=== PATIENT | male | born 1970 | race Caucasian/White ===

== ENCOUNTER 2023-11-06 13:29 | Outpatient (CLI) | payer OTHER, SELFPAY ==
--- OUTSIDE RECORDS SUMMARY | 2023-11-06 13:33 | XMS_ITS | Referral Summary ---
Author Organization [place] Address [address] [facility] [place] [address] Care Team Providers Care Transcript Clerk Name Role Phone [facility], [facility] Primary Care Provider + Allergies Active Allergy Reactions Criticality Noted Date Comments Hydromorphone 10/02/2017 No Known Drug Allergy 05/12/2011 Medications Medication Sig Dispensed Refills Start Date End Date Status azithromycin (ZITHROMAX Z-LUZ) 250 MG tabletIndications:A cute bronchitis Take 2 tablets on day 1, then 1 tablet daily for 4 days. May fill antibiotics 05/27/12. 6 tablet 0 05/24/2012 Active Active Problems Problem Noted Date Diagnosed Date Mixed hyperlipidemia 05/12/2011 Resolved Problems Problem Noted Date Diagnosed Date Resolved Date NO ACTIVE PROBLEMS 05/12/2011 2 Immunizations Name Administration Dates Next Due TDAP Vaccine (Adacel) 05/12/2011 Social History Tobacco Use Types Packs/Day Years Used Date Smoking Tobacco: Some Days Smokeless Tobacco: Never Tobacco Cessation:Ready to Q uit: No; Counseling Given: Yes Alcohol Use Standard Drinks/Week Comments Not Asked 0 (1 standard drink = 0.6 oz pur e alcohol) Adolescent Education Answer Date Record ed Getting School Help Needed Not on file 01/27 Sex and Gender Information Value Date Recorded Sex Assigned at Not on file Gender Identity Not on file Sexual Orientation Not on file Last Filed Vital Signs Vital Sign Reading Time Taken Comments Blood Pressure 147/95 10/02/2017 8:30 AM CDT Pulse 69 10/02/2017 7:20 AM CDT Temperature 36.3 ??C (97.3 ??F) 10/02/2017 7:20 AM CD T Respiratory Rate 18 10/02/2017 7:20 AM CDT Oxygen Saturation 97% 10/02/2017 8:45 AM CDT Inhaled Oxygen Concentration - - Weight 99.1 kg (218 lb 7 oz) 05/24/2012 2:09 PM LABELER Height 167.6 cm (5' 6) 05/07/2012 2:20 PM LABELER Body Mass Index 35.26 05/07/2012 2:20 PM LABELER Plan of Treatment Not on file Care Teams Transcript Clerk Relationship Specialty Start Date End Date Clinic, [place] [address] [place] [address] PCP - General 10/02/17
--- OUTSIDE RECORDS SUMMARY | 2023-11-06 13:33 | XMS_ITS | Clinical Summary ---
Author Organization [place] Address [address] [place] [address] Care Team Providers Care Foot Piece Assembler Name Role Phone [facility], [facility] Primary Care Provider + Allergies Active Allergy [...] Dates Next Due TDAP Vaccine (Adacel) 05/12/2011 Family History Medical History Relation Comments C.A.D. Father Cerebrovascular Disease Father Diabetes Father Heart Disease Father Hypertension Father Lipids Father Cancer - colorectal Maternal Grandmother Heart Disease Maternal Grandmother Gastrointestinal Disease Mother colon p olyps Hypertension Mother Lipids Mother Gastrointestinal Disease Sister 2 Relation Status Comments Father (Age 70) congestive hea rt failure Maternal Grandmother Mother Alive Sister 1 Alive Sister 2 Social History Tobacco Use Types Packs/Day Years [...] (218 lb 7 oz) 05/24/2012 2:09 PM GENERAL ASSISTANT Height 167.6 cm (5' 6) 05/07/2012 2:20 PM GENERAL ASSISTANT Body Mass Index 35.26 05/07/2012 2:20 PM GENERAL ASSISTANT Plan of Treatment Not on file Care Teams Foot Piece Assembler Relationship Specialty Start Date End Date Clinic, [place] [address] [place] [address] PCP - General 10/02/17
--- OUTSIDE RECORDS SUMMARY | 2023-11-06 13:33 | XMS_ITS | Encounter Summary ---
Author Organization [place] Address [address] [facility] [address] Care Team Providers Care Motor Equipment Commanding Officer Name Role Phone Gabino Reddy MD Primary Care Provider +1- [phone] Fer Robbins MD Unavailable +[phone] [facility] Primary Care Provider + Encounter Details Date Type Department Care Team (Late st Contact Info) Description 05/09/2012 [facility] Inpatient Dept [address] [place] [phone] Frw, Inpatient Provider Social History Tobacco Use Types Packs/Day Years Used Date Smoking Tobacco: Some Days Smokeless Tobacco: Never Alcohol Use Standard Drinks/Week Comments Not Asked 0 (1 standard drink = 0.6 oz pur e alcohol) Sex and Gender Information Value Date Recorded Sex Assigned at Not on file Gender Identity Not on file Sexual Orientation Not on file documented as of this encounter Plan of Treatment Not on file documented as of this encounter Visit Diagnoses Not on filedocumented in this encounter Care Teams Motor Equipment Commanding Officer Relationship Specialty Start Date End Date Gabino Reddy MD [facility] [address] [place] [address] PCP - General Family Practice 05/12/11 10/01/17 Fer Robbins MD [facility] [address] [place] [address] PCP - Orthopaedics Orthopedics 04/30/12 10/01/17 [facility] [address] [place] [address] PCP - General 10/02/17 documented as of this encounter
--- OUTSIDE RECORDS SUMMARY | 2023-11-06 13:33 | XMS_ITS | Encounter Summary ---
Author Organization [place] Address [address] [place] [address]. [place] [address] Care Team Providers Care Claim Rep Name Role Phone Gabino Reddy MD Primary Care Provider [phone]- [phone] Encounter Details Date Type Department Care Team (Late st Contact Info) Description 06/23/2011 2:55 PM DONOR SERVICES SPECIALIST [facility] in [address] [address] Danay Sexton MD XXX [place] [address] Social History Tobacco Use Types Packs/Day Years [...] on file documented as of this encounter Procedures Procedure Name Priority Date/Time Associated Diagnosis Comments SURGICAL PATHOLOGY EXAM Routine 06/23/2011 12:00 AM DONOR SERVICES SPECIALIST documented in this encounter Results * Surgical pathology exam (06/23/2011 12:00 AM DONOR SERVICES SPECIALIST) Copath Report Patient Name: TE VIEYRA MR#: [id number] Specimen #: [id number] Collected: 06/23/2011 Received: 06/23/2011 Reported: 06/26/2011 13:59 Ordering Phy(s): DANAY SEXTON SPECIMEN(S): A: Rectosigmoid polyp B: Colon, descending polyp C: Sigmoid colon polyp FINAL DIAGNOSIS: A. ??Colon, sigmoid, rectal-sigmoid polyp, biopsies: ? - ??Fragments of hyperplastic polyp. B. ??Colon, descending, biopsies: ? - ??Hyperplastic polyp. C. ??Colon, sigmoid, biopsy: ? - ??Hyperplastic polyp. Electronically signed out by: Nik Winslow M.D. CLINICAL HISTORY: Specimen A, colon, sigmoid, rectosigmoid polyp. ??Specimen B, colon, descending. ??Specimen C, colon, sigmoid. GROSS: The containers are labeled with the patient's name, medical record number, and the date of . A. ??Specimen A is designated as colon, sigmoid, rectosigmoid polyp. Four tissues, 1-2 mm. B. ??Specimen B is designated as colon, descending. ??Four tissues, less than 1 mm - 1 mm. C. ??Specimen C is designated as colon, sigmoid. ??2 mm tissue. (Nik Winslow MD/ ??06/23/2011) MICROSCOPIC: A-C. ??Microscopic examination is performed. Nik Winslow MD/elaine 06/26/2011 TESTING LAB LOCATION: [address] [address] COLLECTION SITE: Client: [facility] Location: END (W) COPATH 06/23/2011 06/23/2011 11: 47 AM DONOR SERVICES SPECIALIST Danay Sexton MD LAB - [facility] COPATH documented in this encounter Visit Diagnoses Not on filedocumented in this encounter Care Teams Claim Rep Relationship Specialty Start Date End Date Gabino Reddy MD [address] [address] PCP - General Family Practice 05/12/11 10/01/17 documented as of this encounter
== END 2023-11-06 13:30 | disposition home or self-care (01) ==
PROVIDERS: PCP Internal Medicine; Visit Provider Internal Medicine
DX: Z00.00 Encounter for general adult medical examination without abnormal findings (principal); I10 Essential (primary) hypertension; E78.5 Hyperlipidemia, unspecified; Z12.5 Encounter for screening for malignant neoplasm of prostate
CPT/HCPCS: 80053; 80061; G0103

== ENCOUNTER 2024-03-19 13:20 | Outpatient (CLI) | payer MEDICAID, OTHER, SELFPAY ==
--- OUTSIDE RECORDS SUMMARY | 2024-03-19 13:23 | XMS_ITS | Clinical Summary ---
Author Organization [employer] [facility] [place] [address] Care Team Providers Care Vehicle Technician Name Role Phone Cynthia Chavez MD Primary Care Provider Unava ilable Allergies Active Allergy Reactions Criticality Noted Date Comments Hydromorphone *Unknown 10/02/2017 Medications Medication Sig Dispensed Refills Start Date End Date Status aspirin (ECOTRIN) 81 mg enteric coated tabletIndications: S/P total left hip arthroplasty Take 1 Tablet (81 mg) by mouth two times daily with meals. Begin evening of surgery 84 Tablet 02/04/2024 Active celecoxib (CeleBREX) 100 mg capsuleIndications :S/P total left hip arthroplasty Take 1 Capsule (100 mg) by mouth two times daily with meals. 60 Capsule 02/04/2024 Active pantoprazole (PROTONIX) 40 mg delayed-release tabletIndications: S/P total left hip arthroplasty Take 1 Tablet (40 mg) by mouth before breakfast. 30 Tablet 02/04/2024 Active ondansetron (Zofran) 4 mg tabletIndications: S/P total left hip arthroplasty Take 1 Tablet (4 mg) by mouth every 8 hours if needed for Nausea/Vomiting. 20 Tablet 02/04/2024 Active docusate (COLACE) 100 mg capsuleIndications :S/P total left hip arthroplasty Take 1 Capsule (100 mg) by mouth 2 times daily if needed for Constipation. 20 Capsule 02/04/2024 Active oxyCODONE (ROXICODONE) 5 mg immediate release tabletIndications: S/P total left hip arthroplasty Take 1 Tablet (5 mg) by mouth every 4 hours if needed for Pain. 20 Tablet 02/04/2024 Active traMADoL (ULTRAM) 50 mg tabletIndications: S/P total left hip arthroplasty Take 1 Tablet (50 mg) by mouth every 6 hours if needed for Pain. 30 Tablet 02/04/2024 Active acetaminophen (TYLENOL EXTRA STRGTH) 500 mg tabletIndications: S/P total left hip arthroplasty Take 2 Tablets (1,000 mg) by mouth every 6 hours. Max acetaminophen dose: 4000mg in 24 hrs. 200 Tablet 02/04/2024 Active Active Problems Problem Noted Date Diagnosed Date Primary localized osteoarthritis of left hip Primary osteoarthritis of left hip 02/04/2024 Primary hypertension 01/22/2024 Mixed hyperlipidemia 05/12/2011 Encounters Date Type Department Care Team Description 03/18/2024 11:25 AM STEELWORKER Ancillary Procedure [facility] Specialty [facility] [address] [facility] [address] [place] [address] Arrived 03/18/2024 11:15 AM STEELWORKER Office Visit [facility] Specialty [facility] [address] [facility] [address] [place] [address] Javier Pascal, Arrived 03/18/2024 Travel 02/19/2024 11:15 AM CDT Ancillary Procedure [facility] Specialty [facility] [address] [facility] [address] [place] [address] 02/19/2024 11:00 AM CDT Office Visit [facility] [address] [place] [address] [address] [place] [address] Javier Pascal DO 02/19/2024 Travel 02/04/2024 6:22 AM CDT - 02/04/2024 11:59 PM CDT Hospital Encounter Javier Pascal DO 02/04/2024 Orders Only [facility] Specialty [facility] [address] [facility] [address] [place] [address] Javier Pascal, <No scans attached> 02/04/2024 Telephone [facility] Specialty [facility] [address] [place] [address] [address] [place] [address] Javier Pascal DO Referral (PT) 02/04/2024 Surgery [facility] [facility] [address] [facility] [address] [place] [address] Javier Pascal DO LEFT TOTAL HIP ARTHROPLASTY ANTERIOR APPROACH 02/04/2024 Orders Only [facility] Specialty Clinic [address] [facility] [address] [place] [address] Marva Lynne PA <No scans attached> 01/22/2024 1:45 PM CDT Office Visit [facility] Specialty [facility] [address] [facility] [address] [place] [address] Javier Pascal DO Follow Up (Post-traumatic osteoarthritis of left hip/) 01/22/2024 Orders Only [facility] Specialty Clinic [address] [facility] [address] [place] [address] Javier Pascal DO <No scans attached> 01/22/2024 Travel 01/10/2024 10:45 AM CDT Ancillary Procedure [facility] [address] [address] 01/10/2024 10:40 AM CDT Ancillary Procedure [facility] [address] [address] 01/10/2024 10:15 AM CDT Office Visit [facility] [address] [address] Javier Pascal DO Hip Pain/problem (Left hip pain) 01/10/2024 Travel from Last 3 Months Social History Tobacco Use Types Packs/Day Years Used Date Smoking Tobacco: Some Days Smokeless Tobacco: Current Tobacco Cessation:Ready to Q uit: Not Asked; Counseling Given: Not Answered Comments:Vapes and uses nicotine patches some days, could not quantify use. Sex and Gender Information Value Date Recorded Sex Assigned at Not on file Gender Identity Not on file Sexual Orientation Not on file Travel History Travel Start Travel End [place] 02/18/2024 02/18/2024 Obstetrics History Plan of Treatment Health Maintenance Due Date Last Done Comments Tdap 01/16/1980 Depression screening for age 12+ 1981 HIV for age 15-65 01/16/1984 BMI (ht and wt on same day) for age 18+ 1987 Hepatitis C screening for ag e 18-79 1987 Tetanus booster 1989 Colonoscopy through age 75 2014 Lipids for age 45-75 2014 Zoster (shingles) series for age 50+ (1 of 2) 2019 COVID-19 vaccine series ( - 2023- season) 2023 Influenza for age 50-64 12/23/2023 Pneumococcal series for age 6-64 Aged Out No longer eligible based on patient's age to complete this topic Procedures Procedure Name Priority Date/Time Associated Diagnosis Comments XR PELVIS 1 VIEW Routine 02/19/2024 11:1 8 AM CDT S/P left anterior total hip arthroplasty, DOS: 02/04/24 by Javier Pascal DO XR HIP 2 OR 3 VIEWS W PELVIS LEFT Routine 01/10/2024 10:50 AM CDT Left hip pain XR LEG LENGTH Routine 01/10/2024 10:49 AM CDT Left hip pain SURGICAL PROCEDURE (TYPE PROCEDURE DESCRIPTION BELOW) Elective Post-traumatic osteoarthritis of left hip from Last 3 Months Results * XR PELVIS 1 VIEW (02/19/2024 11:18 AM CDT) Anatomical Region Laterality Modality Pelvis Digital Radiogra phy 02/20/2024 9:55 AM CDT Narrative 02/20/2024 9:55 AM CDT For Patients: As a result of the Cures Act, medical imaging exams and procedure reports are released immediately into your electronic medical record. You may view this report before your referring provider. If you have questions, please contact your health care provider. Indication: Postoperative follow-up. Technique: One-view pelvis Comparison: 01/10/2024. Findings: Left hip arthroplasty in anatomic alignment. No periprosthetic lucency or fracture. Moderate arthrosis at the contralateral right hip. Included bony pelvis intact. Impression: Left hip arthroplasty without radiographic evidence of complication Dictated by Eric Cedeño MD @ 02/20/2024 9:55:18 AM (Electronically Signed) Procedure Note Eric Cedeño MD - 02/20/2024 For Patients: As a result of the s Act, medical imagingexams and procedure reports are released immediately into your electronicmedical record. You may view this report before your referring provider.If you have questions, please contact your health care provider. Indication: Postoperative follow-up. Technique: One-view pelvis Comparison: 01/10/2024. Findings: Left hip arthroplasty in anatomic alignment. No periprosthetic lucency orfracture. Moderate arthrosis at the contralateral right hip. Included bonypelvis intact. Impression: Left hip arthroplasty without radiographic evidence of complication Dictated by Eric Cedeño MD @ 02/20/2024 9:55:18 AM (Electronically Signed) [facility] GENERAL IMAG[facility] * XR HIP 2 OR 3 VIEWS W PELVIS LEFT (01/10/2024 10:50 AM CDT) Anatomical Region Laterality Modality HIPS, HIPL, Pelvis Digital Radio graphy 01/11/2024 7:47 AM CDT Narrative 01/11/2024 7:47 AM CDT For Patients: As a result of the s , medical imaging exams and procedure reports are released immediately into your electronic medical record. You may view this report before your referring provider. If you have questions, please contact your health care provider. INDICATION: Left hip pain TECHNIQUE: Three views left hip FINDINGS/IMPRESSION: Advanced degenerative change of the left hip with joint space narrowing osteophytic changes moderate degenerative change of the right hip. No fractures. Dictated by Nay Roe MD @ 01/11/2024 7:47:31 AM (Electronically Signed) Procedure Note Nay Roe MD - 01/11/2024 For Patients: As a result of the s , medical imagingexams and procedure reports are released immediately into your electronicmedical record. You may view this report before your referring provider.If you have questions, please contact your health care provider. INDICATION: Left hip pain TECHNIQUE: Three views left hip FINDINGS/IMPRESSION: Advanced degenerative change of the left hip with joint space narrowingosteophytic changes moderate degenerative change of the right hip. Nofractures. Dictated by Nay Roe MD @ 01/11/2024 7:47:31 AM (Electronically Signed) Javier Pascal DO GENERAL IMAGING * XR LEG LENGTH (01/10/2024 10:49 AM CDT) Anatomical Region Laterality Modality LEGS, FEMURS Digital Radiogra phy 01/11/2024 7:46 AM CDT Narrative 01/11/2024 7:46 AM CDT For Patients: As a result of the Cures Act, medical imaging exams and procedure reports are released immediately into your electronic medical record. You may view this report before your referring provider. If you have questions, please contact your health care provider. INDICATION: Left hip pain TECHNIQUE: TECHNIQUE:Standing views of both lower extremities. FINDINGS/IMPRESSION: Advanced degenerative Change left hip. Moderate degenerative change right hip. Limb length measured from the superior femoral head to the center of the tibial plafond. Right leg length: 84.3 Mechanical axis passes through the medial compartment Left leg length: 85.1 Mechanical axis passes through the intercondylar notch Dictated by Nay Roe MD @ 01/11/2024 7:46:49 AM (Electronically Signed) Procedure Note Nay Roe MD - 01/11/2024 For Patients: As a result of the Cures Act, medical imagingexams and procedure reports are released immediately into your electronicmedical record. You may view this report before your referring provider.If you have questions, please contact your health care provider. INDICATION: Left hip pain TECHNIQUE: TECHNIQUE:Standing views of both lower extremities. FINDINGS/IMPRESSION: Advanced degenerative Change left hip. Moderate degenerative change right hip. Limb length measured from the superior femoral head to the center of thetibial plafond. Right leg length: 84.3 Mechanical axis passes through the medial compartment Left leg length: 85.1 Mechanical axis passes through the intercondylar notch Dictated by Nay Roe MD @ 01/11/2024 7:46:49 AM (Electronically Signed) Javier Pascal DO GENERAL IMAGING from Last 3 Months Care Teams Vehicle Technician Relationship Specialty Start Date End Date Cynthia Chavez MD PCP - General 04/19/05
--- OUTSIDE RECORDS SUMMARY | 2024-03-19 13:23 | XMS_ITS | Encounter Summary ---
Author Organization [place] Address [address] [place] [address] Care Team Providers Care Television Script Writer Name Role Phone Gabino Reddy MD Primary Care Provider +1- [phone] Encounter Details Date Type Department Care Team (Late st Contact Info) Description 06/23/2011 2:[address] [facility] in [address] [phone] Danay Sexton MD XXX [place] [address] [address] Social History Tobacco Use Types Packs/Day Years Used Date Smoking Tobacco: Some Days Smokeless Tobacco: Never Alcohol Use Standard Drinks/Week Comments Not Asked 0 (1 standard drink = 0.6 oz pur e alcohol) Sex and Gender Information Value Date Recorded Sex Assigned at Not on file Legal Sex Male 2:58 AM ADMISSIONS ASSISTANT Gender Identity Not on file Sexual Orientation Not on file documented as of this encounter Plan of Treatment Not on file documented as of this encounter Procedures Procedure Name Priority Date/Time Associated Diagnosis Comments SURGICAL PATHOLOGY EXAM Routine 06/23/2011 12:00 AM ADMISSIONS ASSISTANT documented in this encounter Results * Surgical pathology exam (06/23/2011 12:00 AM ADMISSIONS ASSISTANT) Copath Report Patient Name: TE VIEYRA MR#: [id number] Specimen #: [id number] Collected: 06/23/2011 Received: 06/23/2011 Reported: 06/26/2011 13:59 Ordering Phy(s): DANAY SEXTON SPECIMEN(S): A: Rectosigmoid polyp B: Colon, descending polyp C: Sigmoid colon polyp FINAL DIAGNOSIS: A. Colon, sigmoid, rectal-sigmoid polyp, biopsies: - Fragments of hyperplastic polyp. B. Colon, descending, biopsies: - Hyperplastic polyp. C. Colon, sigmoid, biopsy: - Hyperplastic polyp. Electronically signed out by: Nik Winslow M.D. CLINICAL HISTORY: Specimen A, colon, sigmoid, rectosigmoid polyp. Specimen B, colon, descending. Specimen C, colon, sigmoid. GROSS: The containers are labeled with the patient's name, medical record number, and the date of . A. Specimen A is designated as colon, sigmoid, rectosigmoid polyp. Four tissues, 1-2 mm. B. Specimen B is designated as colon, descending. Four tissues, less than 1 mm - 1 mm. C. Specimen C is designated as colon, sigmoid. 2 mm tissue. (Nik Winslow MD/ 06/23/2011) MICROSCOPIC: A-C. Microscopic examination is performed. Nik Winslow MD/elaine 06/26/2011 TESTING LAB LOCATION: [address] [place] [address] COLLECTION SITE: Client: [facility] Location: END (W) COPATH 06/23/2011 06/23/2011 11: 47 AM ADMISSIONS ASSISTANT Danay Sexton MD LAB - [facility] COLON [facility] Re sult [facility] Organization Address City/State/ZIP Co de Phone Number COPATH documented in this encounter Visit Diagnoses Not on filedocumented in this encounter Care Teams Television Script Writer Relationship Specialty Start Date End Date Gabino Reddy MD [address] [place] [address] PCP - General Family Practice 05/12/11 10/01/17 documented as of this encounter
--- OUTSIDE RECORDS SUMMARY | 2024-03-19 13:23 | XMS_ITS | Clinical Summary ---
Author Organization [place] Address [address] [facility] [place] [address] Care Team Providers Care Biology Manager Name Role Phone [facility] Primary Care Provider + Allergies Active Allergy Reactions Criticality Noted Date Comments Hydromorphone 10/02/2017 No Known Drug Allergy 05/12/2011 Medications azithromycin (ZITHROMAX Z-LUZ) 250 MG tabletIndicatio ns:Acute bronchitis Take 2 tablets on day 1, then 1 tablet daily for 4 days. May fill antibiotics 05/27/12. 6 tablet 0 3 Active Active Problems Problem Noted Date Diagnosed [...] on file Legal Sex Male 2:58 AM ASSEMBLY INSPECTOR Gender Identity Not on file Sexual Orientation Not on file Last Filed Vital Signs Vital Sign Reading Time Taken Comments Blood Pressure 147/95 10/02/2017 8:30 AM CDT Pulse 69 10/02/2017 7:20 AM CDT Temperature 36.3 C (97.3 F) 10/02/2017 7:20 AM CDT Respiratory Rate 18 10/02/2017 7:20 AM CDT Oxygen Saturation 97% 10/02/2017 8:45 AM CDT Inhaled Oxygen Concentration - - Weight 99.1 kg (218 lb 7 oz) 05/24/2012 2:09 PM ASSEMBLY INSPECTOR Height 167.6 cm (5' 6) 05/07/2012 2:20 PM ASSEMBLY INSPECTOR Body Mass Index 35.26 05/07/2012 2:20 PM ASSEMBLY INSPECTOR Plan of Treatment Not on file Insurance [facility] Care Teams Biology Manager Relationship Specialty Start Date End Date [facility], [place] [address] [place] [address] PCP - General 10/02/17
--- OUTSIDE RECORDS SUMMARY | 2024-03-19 13:23 | XMS_ITS | Referral Summary ---
Author Organization [place] Address [address] [facility] [address] Care Team Providers Care Car Inspector Name Role Phone [facility] Primary Care Provider + Allergies Active [...] on file Legal Sex Male 2:58 AM LEGAL EDITOR Gender Identity Not on file Sexual Orientation [...] (218 lb 7 oz) 05/24/2012 2:09 PM LEGAL EDITOR Height 167.6 cm (5' 6) 05/07/2012 2:20 PM LEGAL EDITOR Body Mass Index 35.26 05/07/2012 2:20 PM LEGAL EDITOR Plan of Treatment Not on file Insurance [facility] Care Teams Car Inspector Relationship Specialty Start Date End Date [facility], [place] [address] [place] [address] PCP - General 10/02/17
--- OUTSIDE RECORDS SUMMARY | 2024-03-19 13:23 | XMS_ITS | Encounter Summary ---
Author Organization [place] Address [address] [place] [address]. [place] [address] Care Team Providers Care Marine Services Technician Name Role Phone Gabino Reddy MD Primary Care Provider [phone] Fer Robbins MD Unavailable +[phone] [facility] Primary Care Provider + Encounter Details Date Type Department Care Team (Late st Contact Info) Description 05/09/2012 [facility] [place] Inpatient Dept [address] [place] [address] Frw, Inpatient Provider Social History Tobacco Use Types Packs/Day Years Used Date Smoking Tobacco: Some Days Smokeless Tobacco: Never Alcohol Use Standard Drinks/Week Comments Not Asked 0 (1 standard drink = 0.6 oz pur e alcohol) Sex and Gender Information Value Date Recorded Sex Assigned at Not on file 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 Gender Identity Not on file Sexual Orientation Not on file documented as of this encounter Plan of Treatment Not on file documented as of this encounter Visit Diagnoses Not on filedocumented in this encounter Care Teams Marine Services Technician Relationship Specialty Start Date End Date Gabino Reddy MD [facility] [address] [place], [place] [id number] PCP - General Family Practice 05/12/11 10/01/17 Fer Robbins MD [facility] [address] [place], [place] [id number] PCP - Orthopaedics Orthopedics 04/30/12 10/01/17 [facility], [facility] [address] [place] [address] PCP - General 10/02/17 documented as of this encounter
== END 2024-03-19 13:21 | disposition home or self-care (01) ==
PROVIDERS: PCP Internal Medicine; Visit Provider Internal Medicine
DX: E78.5 Hyperlipidemia, unspecified (principal)
CPT/HCPCS: 80061

== ENCOUNTER 2024-08-04 11:29 | Outpatient (CLI) | payer MEDICAID, SELFPAY ==
--- NOTE | 2024-08-04 12:52 | P.ANES_ITS ---
Anesthesia Charges Start Date/Time Anesthesia Start Date: 08/04/24 Anesthesia Start Time: 12:20 Stop Date/Time Anesthesia Stop Date: 08/04/24 Anesthesia Stop Time: 12:50 Coding CPT Codes CPT Codes: STALIN LWRosalind INTST NDSC NOS - [id number] ([id number]) P2 - PATIENT W/MILD SYST DISEASE, QX - INVENTORY PLANNER SVC W/ MD MED DIRECTION, QK - BRUSH AND BROOM CLIPPER 2-4 CNCRNT ANEÁngel PROC
--- NOTE | 2024-08-04 12:52 | W.ANESCHARGE ---
Anesthesia Charges Start Date/Time Anesthesia Start Date: 08/04/24 Anesthesia Start Time: 12:20 Stop Date/Time Anesthesia Stop Date: 08/04/24 Anesthesia Stop Time: 12:50 Coding CPT Codes CPT Codes: STALIN LWRosalind INTST NDSC NOS - [id number] ([id number]) P2 - PATIENT W/MILD SYST DISEASE, QX - OFFICE ELECTRICIAN SVC W/ MD MED DIRECTION, QK - ENERGY PROJECT MANAGER 2-4 CNCRNT ANEÁngel PROC
--- NOTE | 2024-08-04 12:56 | P.ANES_ITS ---
Anesthesia Charges Start Date/Time Anesthesia Start Date: 08/04/24 Anesthesia Start Time: 12:20 Stop Date/Time Anesthesia Stop Date: 08/04/24 Anesthesia Stop Time: 12:50 Coding CPT Codes CPT Codes: STALIN LWR INTST NDSC NOS - [id number] ([id number]) P2 - PATIENT W/MILD SYST DISEASE, QK - CHANNEL PARTNERS 2-4 CNCRNT ANES PROC, QX - REPRESENTATIVE PHLEBOTOMY SERVICES SVC W/ MD MED DIRECTION
--- NOTE | 2024-08-04 12:56 | W.ANESCHARGE ---
Anesthesia Charges Start Date/Time Anesthesia Start Date: 08/04/24 Anesthesia Start Time: 12:20 Stop Date/Time Anesthesia Stop Date: 08/04/24 Anesthesia Stop Time: 12:50 Coding CPT Codes CPT Codes: STALIN LWR INTST NDSC NOS - [id number] ([id number]) P2 - PATIENT W/MILD SYST DISEASE, QK - CAROUSEL OPERATOR 2-4 CNCRNT ANES PROC, QX - RESEARCH PROGRAMMER SVC W/ MD MED DIRECTION
== END 2024-08-04 11:30 | disposition home or self-care (01) ==
PROVIDERS: PCP Internal Medicine; Visit Provider Internal Medicine
DX: Z12.11 Encounter for screening for malignant neoplasm of colon (principal); K62.89 Other specified diseases of anus and rectum; D49.0 Neoplasm of unspecified behavior of digestive system; K57.30 Diverticulosis of large intestine without perforation or abscess without bleeding; Z86.0100 Personal history of colon polyps, unspecified
CPT/HCPCS: 00811; 00812; 45380; 88305; 88341; 88342; J2704